=== PATIENT | male | born 1965 | race Caucasian/White ===

== ENCOUNTER 2018-10-24 08:40 | Emergency (ER) | payer MEDICAID ==
[~2018-10-24] VITALS: Ht 170.2 cm; Wt 74.8 kg
[2018-10-24 08:40] VITALS: BP 148/97
[2018-10-24] MEDS ORDERED: KEP500 PO (08:57)
[2018-10-24] MEDS ORDERED: ATOR20TA PO (08:57)
[2018-10-24 09:18] LABS: HEMATOCRIT 44.6 % (36-52); HEMOGLOBIN 14.7 g/dL (12.0-18.0); MEAN CORPUSCULAR HEMOGLOBIN 32 pg (27-31); MEAN CORPUSCULAR HGB CONC 33 g/dL (33-37); PLATELET COUNT (AUTO) 302 K/uL (140-450); RED BLOOD CELL COUNT(AUTO) 4.64 MIL/uL (4.20-6.10); RED CELL DISTRIBUTION WIDTH 13.1 % (11.6-13.7); WHITE BLOOD COUNT (AUTO) 5.2 K/uL (4.8-10.8)
[2018-10-24 09:29] LABS: ALBUMIN 4.1 g/dL (3.4-5.0); CARBON DIOXIDE 22.9 mmol/L (21-32); CREATININE 1.3 mg/dL (0.7-1.3); POTASSIUM 3.9 mmol/L (3.5-5.1); TOTAL BILIRUBIN 0.4 mg/dL (0.0-1.0)
[2018-10-24 09:35] LABS: LYMPHOCYTES % (MANUAL) 30 % (20-46)
[2018-10-24 09:36] LABS: EOSINOPHILS % (MANUAL) 3 % (0-4); MONOCYTES % (MANUAL) 8 % (5-12)
[2018-10-24 10:30] VITALS: BP 123/70
== END 2018-10-24 10:30 | disposition home or self-care (01) ==
LOC: MED 08:40
DX: S00.81XA Abrasion of other part of head, initial encounter (principal); R56.9 Unspecified convulsions; Z79.899 Other long term (current) drug therapy; X58.XXXA Exposure to other specified factors, initial encounter; Y93.89 Activity, other specified; Y92.89 Other specified places as the place of occurrence of the external cause; Y99.8 Other external cause status
CPT/HCPCS: 36415; 70450; 80053; 82948; 85025; 99284

== ENCOUNTER 2019-03-12 14:50 | Emergency (ER) | payer SELFPAY ==
[~2019-03-12] VITALS: Ht 170.2 cm; Wt 77.1 kg
[~2019-03-12 14:50] MED LIST: ATOR20TA PO; KEP500 PO
[2019-03-12 14:59] VITALS: BP 132/78
--- NOTE | 2019-03-12 15:05 | NUR ---
PT BIBA. PT STATES HE HAD SEIZURE AT THE MALL. FELL BACKWARDS BUT WAS "HELPED TO THE FLOOR BY FAMILY". DENIES HITTING HEAD. AAOX4 AT THIS TIME. DENIES PAIN. PMHX OF SEIZURE. STATES COMPLIANCE WITH SEIZURE MEDICATIONS. BEDRAILS UP X2 WITH SEIZURE PADS, BED LOCKED & LOW. ERMD TO EVAL PATIENT.
[2019-03-12 15:12] VITALS: BP 132/78
--- NOTE | 2019-03-12 16:13 | NUR ---
pt ambulatory to bathroom, unassisted, even steady gait.
[2019-03-12 16:50] LABS: BASOPHILS % (AUTO) 0.4 % (0.0-2.0); EOSINOPHILS # (AUTO) 0.1 K/uL (0-0.4); EOSINOPHILS % (AUTO) 1.5 % (0.0-4.0); HEMATOCRIT 41.9 % (36-52); HEMOGLOBIN 14.1 g/dL (12.0-18.0); LYMPHOCYTES # (AUTO) 1.7 K/uL (2.0-11.5); LYMPHOCYTES % (AUTO) 28.1 % (20.5-51.1); MEAN CORPUSCULAR HEMOGLOBIN 32 pg (27-31); MEAN CORPUSCULAR HGB CONC 34 g/dL (33-37); MEAN CORPUSCULAR VOLUME 94.5 fL (80-94); MONOCYTES # (AUTO) 0.5 K/uL (0.8-1.0); MONOCYTES % (AUTO) 7.4 % (1.7-9.3); NEUTROPHILS # (AUTO) 3.8 K/uL (1.8-7.7); NEUTROPHILS % (AUTO) 62.6 % (42.2-75.2); PLATELET COUNT (AUTO) 264 K/uL (140-450); RED BLOOD CELL COUNT(AUTO) 4.43 MIL/uL (4.20-6.10); RED CELL DISTRIBUTION WIDTH 13.6 % (11.6-13.7); WHITE BLOOD COUNT (AUTO) 6.1 K/uL (4.8-10.8)
--- NOTE | 2019-03-12 17:00 | NUR ---
PT TO CT SCAN VIA [facility]
[2019-03-12 17:01] LABS: APPEARANCE,URINE CLEAR (CLEAR); BILIRUBIN,URINE NEGATIVE (NEGATIVE); BLOOD, URINE NEGATIVE (NEGATIVE); COLOR,URINE YELLOW (YELLOW); LEUKOCYTE ESTERASE ,URINE NEGATIVE (NEGATIVE); NITRITE, URINE NEGATIVE (NEGATIVE); UGLUCOSE NEGATIVE (NEGATIVE)
[2019-03-12 17:04] LABS: CARBON DIOXIDE 25.9 mmol/L (21-32); CHLORIDE 106 mmol/L (98-107); GFR ARICAN-AMERICAN 100 mL/min (>90); GLUCOSE 100 mg/dL (74-106); POTASSIUM 3.9 mmol/L (3.5-5.1); SODIUM SERUM 140 mmol/L (136-145); UREA NITROGEN, BLOOD 16 mg/dL (7-18)
[2019-03-12 17:05] LABS: BARBITURATE, URINE NEG. ng/ml (NEG <=200); BENZODIAZEPINE, URINE NEG. ng/mL (NEG <=200); CANNABINOID, URINE NEG. ng/mL (NEG <=50); COCAINE, URINE NEG. ng/mL (NEG <=300); OPIATE, URINE NEG. ng/mL (NEG <=2000); PHENCYCLIDINE SCREEN,URINE NEG. ng/mL (NEG <=25)
[2019-03-12 17:07] LABS: PHENYTOIN (DILANTIN) < 0.5 ug/ml (10.0-20.0)
[2019-03-12 17:13] LABS: ALBUMIN 4.2 g/dL (3.4-5.0); ASPARTATE AMINOTRANSFERASE 31 U/L (15-37); MAGNESIUM 2.1 mg/dL (1.8-2.4); TOTAL BILIRUBIN 0.5 mg/dL (0.0-1.0)
--- NOTE | 2019-03-12 18:20 | NUR ---
PT NOT FOUND IN ER BED, NOT LOCATED IN LOBBY OR ER .
--- NOTE | 2019-03-12 18:25 | NUR ---
HOSPITAL GOWN AND IV REMOVED BY PT FOUND IN BED. PT NO LONGER IN ER , NO FURTHER CARE PROVIDED.
--- NOTE | 2019-03-12 18:45 | NUR ---
PATIENT ELOPED FROM FACILITY. DISCHARGE INSTRUCTIONS NOT GIVEN TO PATIENT. DR. MURRAY NOTIFIED.
== END 2019-03-12 18:45 | disposition left against medical advice (07) ==
LOC: MED 14:50
DX: G40.909 Epilepsy, unspecified, not intractable, without status epilepticus (principal); Z79.899 Other long term (current) drug therapy
CPT/HCPCS: 36415; 70450; 71045; 80053; 80173; 80185; 80305; 81003; 82550; 82553; 83605; 83735; 84484; 85025; 93005; 99284; G0482

== ENCOUNTER 2023-03-31 09:36 | Emergency (ER) | payer SELFPAY ==
[~2023-03-31] VITALS: Ht 175.3 cm; Wt 77.1 kg
[2023-03-31 09:38] VITALS: BP 136/87
--- NOTE | 2023-03-31 10:24 | NUR ---
57 Y/O MALE BIBA, PATIENT PRESENTS TO ED POST TONIC CLONIC WITNESSED SEIZURE. [facility] REPORTS PT HAD 2 MINUTE TONIC CLONIC SEIZURE WITNESSED BY BYSTANDERS IN CHAIR. DENIES N/V/D; SKIN IS PINK/WARM/DRY; AAOX4, SPNAISH SPEAKING, AMBULATES WITH EVEN AND STEADY GAIT; LUNGS CLEAR BL; HR EVEN AND REGULAR; PT DENIES ANY FEVER, CP, SOB, OR COUGH AT THIS TIME; PATIENT STATES PAIN OF 0/10 AT THIS TIME; PATIENT POSITIONED FOR COMFORT; HOB ELEVATED; BEDRAILS UP X2; BED DOWN. ER MD MADE AWARE OF PT STATUS. PMH: HIV, HAART, SEIZURE
--- NOTE | 2023-03-31 10:40 | NUR ---
IV removed, catheter intact and site benign. Applied folded 4x4 gauze and tape to stop bleeding.
[2023-03-31 10:45] VITALS: BP 150/81
--- NOTE | 2023-03-31 10:45 | NUR ---
Patient discharged with v/s stable. Written and verbal after care instructions given and explained. Patient verbalized understanding. Ambulatory with steady gait. All questions addressed prior to discharge. Advised to follow up with PMD.
== END 2023-03-31 10:45 | disposition home or self-care (01) ==
LOC: MED 09:36
DX: R56.9 Unspecified convulsions (principal); Z91.148 Patient's other noncompliance with medication regimen for other reason; Z79.899 Other long term (current) drug therapy
CPT/HCPCS: 99283

== ENCOUNTER 2024-07-12 14:51 | Emergency (ER) | payer MEDICAID ==
[~2024-07-12] VITALS: Ht 172.7 cm; Wt 81.6 kg
[2024-07-12 14:55] VITALS: BP 114/65; PULSE 68; RESP 18; TEMP 98.2; O2SAT 97
[2024-07-12 15:00] VITALS: O2SAT 97
[2024-07-12 15:29] LABS: EOSINOPHILS # (AUTO) 0.3 K/uL (0-0.4); EOSINOPHILS % (AUTO) 6.2 % (0.0-4.0); HEMATOCRIT 33.8 % (36-52); HEMOGLOBIN 11.6 g/dL (12.0-18.0); LYMPHOCYTES # (AUTO) 1.3 K/uL (2.0-11.5); LYMPHOCYTES % (AUTO) 31.7 % (20.5-51.1); MEAN CORPUSCULAR HEMOGLOBIN 33 pg (27-31); MEAN CORPUSCULAR HGB CONC 34 g/dL (33-37); MEAN CORPUSCULAR VOLUME 96.4 fL (80-94); MONOCYTES # (AUTO) 0.4 K/uL (0.8-1.0); MONOCYTES % (AUTO) 8.3 % (1.7-9.3); NEUTROPHILS # (AUTO) 2.3 K/uL (1.8-7.7); NEUTROPHILS % (AUTO) 52.8 % (42.2-75.2); PLATELET COUNT (AUTO) 214 K/uL (140-450); RED BLOOD CELL COUNT(AUTO) 3.51 MIL/uL (4.20-6.10); RED CELL DISTRIBUTION WIDTH 13.4 % (11.6-13.7); WHITE BLOOD COUNT (AUTO) 4.3 K/uL (4.8-10.8)
[2024-07-12 15:40] LABS: ANION GAP 13.5 (8-16); CARBON DIOXIDE 23.8 mmol/L (21-32); CREATININE 1.1 mg/dL (0.6-1.3); POTASSIUM 3.3 mmol/L (3.5-5.1)
[2024-07-12 15:54] LABS: AMPHETAMINE, URINE NEGATIVE ng/ml (NEG <=1000); BARBITURATE, URINE NEGATIVE ng/ml (NEG <=200); BENZODIAZEPINE, URINE NEGATIVE ng/mL (NEG <=200); CANNABINOID, URINE NEGATIVE ng/mL (NEG <=50); COCAINE, URINE NEGATIVE ng/mL (NEG <=300); OPIATE, URINE NEGATIVE ng/mL (NEG <=2000); PHENCYCLIDINE SCREEN,URINE NEGATIVE ng/mL (NEG <=25)
[2024-07-12] MEDS ORDERED: levETIRAcetam 100 MG/ML VIAL IV ONE (15:54)
[2024-07-12] MEDS: levETIRAcetam 1,000 MG in NACL 0.9% 100 ML IV ONE (16:00)
[2024-07-12 17:55] VITALS: BP 114/65; PULSE 68; RESP 18; TEMP 98.2; O2SAT 97
== END 2024-07-12 17:52 | disposition home or self-care (01) ==
LOC: MED 14:51
DX: G40.509 Epileptic seizures related to external causes, not intractable, without status epilepticus (principal); R41.82 Altered mental status, unspecified; M54.2 Cervicalgia; E11.9 Type 2 diabetes mellitus without complications; Z79.899 Other long term (current) drug therapy
CPT/HCPCS: 36415; 70450; 72125; 80048; 80305; 85025; 93005; 96365; 99285; J1953